=== PATIENT | female | born 1935 | race Caucasian/White ===

== ENCOUNTER 2018-09-27 14:37 | Emergency (ER) | payer MEDICARE, OTHER ==
[~2018-09-27] VITALS: Ht 157.5 cm; Wt 68.2 kg
[~2018-09-27 14:37] MED LIST: CELE-193 PO; CLOP75TA15 PO; FURO-150 PO; ISOS60TA4 PO; LEVO50TA8 PO; METO-395 PO; NITR1POW; POTA8TAB8 PO; ROSU10TA2 PO; SPIR25TA5 PO; VENL150C58 PO
[2018-09-27 14:45] VITALS: BP 147/68
[2018-09-27] MEDS ORDERED: bacitracin 15gm ointment TP ONE (15:20)
[2018-09-27] MEDS ORDERED: LIDOcaine 1% 30ml preserv. free vial IJ ONE (15:20)
[2018-09-27] MEDS ORDERED: CEPH250T PO (16:10)
== END 2018-09-27 16:48 | disposition home or self-care (01) ==
LOC: ER 14:37
DX: S98.121A Partial traumatic amputation of right great toe, initial encounter (principal); Z79.2 Long term (current) use of antibiotics; Z79.899 Other long term (current) drug therapy; Z95.1 Presence of aortocoronary bypass graft; Z98.890 Other specified postprocedural states; Z56.0 Unemployment, unspecified; I25.10 Atherosclerotic heart disease of native coronary artery without angina pectoris; K21.9 Gastro-esophageal reflux disease without esophagitis; E07.9 Disorder of thyroid, unspecified; G62.9 Polyneuropathy, unspecified; W18.40XA Slipping, tripping and stumbling without falling, unspecified, initial encounter; Y93.89 Activity, other specified; Y92.89 Other specified places as the place of occurrence of the external cause; Y99.8 Other external cause status
CPT/HCPCS: 12002; 73660; 99284; J2001

== ENCOUNTER 2018-12-31 16:23 | Emergency (ER) | payer OTHER ==
[~2018-12-31] VITALS: Ht 154.9 cm; Wt 63.5 kg
[2018-12-31] MEDS ORDERED: morphine 2 MG/ML inj. syringe IV ONE (17:05)
[2018-12-31] MEDS ORDERED: ondansetron/PF 4mg/2ml inj IV ONE (17:15)
--- NOTE | 2018-12-31 17:53 | NUR ---
Pt returned to room
--- NOTE | 2018-12-31 17:58 | NUR ---
Pt removed from trauma status by PRISCILA Kilpatrick
[2018-12-31 18:48] VITALS: BP 144/87
[2018-12-31] MEDS ORDERED: HYDR-3965 PO (19:08)
[2018-12-31] MEDS ORDERED: HYDROcodone/acetaminophen 5mg/325mg tablet PO ONE (19:20)
== END 2018-12-31 19:37 | disposition home or self-care (01) ==
LOC: ER 16:23
DX: S82.002A Unspecified fracture of left patella, initial encounter for closed fracture (principal); M25.561 Pain in right knee; I25.10 Atherosclerotic heart disease of native coronary artery without angina pectoris; K21.9 Gastro-esophageal reflux disease without esophagitis; M81.0 Age-related osteoporosis without current pathological fracture; Z95.1 Presence of aortocoronary bypass graft; Z98.890 Other specified postprocedural states; Z56.0 Unemployment, unspecified; Z79.2 Long term (current) use of antibiotics; Z79.899 Other long term (current) drug therapy; W01.0XXA Fall on same level from slipping, tripping and stumbling without subsequent striking against object, initial encounter; Y93.89 Activity, other specified; Y92.89 Other specified places as the place of occurrence of the external cause; Y99.8 Other external cause status
CPT/HCPCS: 29505; 70450; 73700; 96374; 96375; 99284; J2270; J2405